=== PATIENT | female | born 1980 | race Caucasian/White ===

== ENCOUNTER 2017-07-22 19:43 | Inpatient (IN) | END 2017-07-23 15:30 | disposition left against medical advice (07) | DRG 202 ==

== ENCOUNTER 2017-08-12 10:57 | Emergency (ER) | END 2017-08-12 16:45 | disposition home or self-care (01) ==

== ENCOUNTER 2017-08-14 00:21 | Emergency (ER) | END 2017-08-14 03:35 | disposition home or self-care (01) ==

== ENCOUNTER 2017-08-17 12:45 | Emergency (ER) | END 2017-08-17 14:55 | disposition home or self-care (01) ==

== ENCOUNTER 2018-09-13 05:33 | Emergency (ER) | payer MEDICAID ==
[~2018-09-13] VITALS: Ht 172.7 cm; Wt 63.9 kg
[~2018-09-13 05:33] MED LIST: ACET-2158 PO; ACET325T33 PO; ALBU18HF IH; ALBU8.5H8 INH; AMOX500C2 PO; ATRO INH; DICY10CA40 PO; FAMO-96 PO; IBUP100O28 PO; OMEP40CA6 PO; ONDA4TAB8 PO; PRED20TA PO; PROM5SYR2 PO; TRAM50TA2 PO; ZOF8 PO
[2018-09-13 05:35] VITALS: BP 125/66; PULSE 81; RESP 18; Ht 172.7 cm; Wt 63.9 kg
[2018-09-13] MEDS ORDERED: ALBUTEROL 0.083% (NEB) 2.5 MG/3 ML AMP HHN STA (06:16)
[2018-09-13] MEDS ORDERED: DEXAMETHASONE 10 MG/ML 1 ML INJ IM ONE (06:30)
[2018-09-13] MEDS ORDERED: IPRATROPIUM (NEB) 0.5 MG/2.5 ML AMP HHN ONE (06:30)
[2018-09-13] MEDS ORDERED: LEVO750T25 PO (07:27)
[2018-09-13] MEDS ORDERED: ALBU2.5V3 NEB (07:27)
[2018-09-13] MEDS ORDERED: PRED20TA PO (07:27)
[2018-09-13] MEDS ORDERED: CEFTRIAXONE 1 GM INJ IM ONE (07:30)
[2018-09-13] MEDS ORDERED: LIDOCAINE 1% (MPF) 5 ML VIAL INJ ONE (07:30)
--- NOTE | 2018-09-13 10:21 | ERD ---
ER Documentation Chief Complaint Chief Complaint cough x 3 weeks, c/o sob HPI 38-year-old female presenting with a cough for the last 3 weeks. Patient has a history of COPD and is using Ventolin and Advair with no alleviation. She took steroids 3 weeks ago but did not resolve her symptoms. Patient denies any feve rs but has a productive cough. Patient is currently homeless. Denies other medical problems. NKDA. Surgical history denies. Social history smokes 1/2 pack a day. Drug use denies ROS All systems reviewed and are negative except as per history of present illness. Medications Home Meds Active Scripts Albuterol Sulfate* (Albuterol Sulfate* Neb) 0.083%-3 Ml Neb, 2.5 MG NEB Q4 PRN for SHORTNESS OF BREATH, #30 EA Prov:RICCO PINTO PA-C 09/13/18 Prednisone* (Prednisone*) 20 Mg Tab, 40 MG PO DAILY for 4 Days, TAB Prov:RICCO PINTO PA-C 09/13/18 Levofloxacin* (Levaquin*) 750 Mg Tablet, 750 MG PO DAILY for 5 Days, TAB Prov:RICCO PINTO PA-C 09/13/18 Tramadol HCl (Tramadol HCl) 50 Mg Tablet, 50 MG PO Q6 PRN for PAIN, #30 TAB Prov:YOMI CAMP PA-C 08/14/17 Ipratropium Jasper* (Atrovent HFA*) 12.9 Gm Aer.w.adap, 2 PUFF INH Q6 PRN for SHORTNESS OF BREATH, #1 EA Prov:YOMI CAMP PA-C 08/14/17 Albuterol Sulfate* (Proair HFA*) 8.5 Gm Hfa.aer.ad, 2 PUFF INH Q4H PRN for WHEEZING AND SOB, #1 INHALER Prov:YOMI CAMP PA-C 08/14/17 Promethazine HCl/Codeine (Prometh-Codein 6.25-10 mg/5 ml) 5 Ml Syrup, 5 ML PO QHS, #120 ML Prov:NOLAN DILLARD MD 08/12/17 Albuterol Sulfate* (Proair HFA*) 8.5 Gm Hfa.aer.ad, 2 PUFF INH Q4H PRN for WHEEZING AND SOB, #1 INHALER Prov:NOLAN DILLARD MD 08/12/17 Amoxicillin* (Amoxicillin*) 500 Mg Cap, 500 MG PO TID for 10 Days, CAP Prov:NOLAN DILLARD MD 08/12/17 Prednisone* (Prednisone*) 20 Mg Tab, 40 MG PO DAILY for 4 Days, TAB Prov:NOLAN DILLARD MD 08/12/17 Ondansetron Hcl* (Zofran*) 8 Mg Tab, 8 MG PO Q6H PRN for NAUSEA AND OR VOMITING, #30 TAB Prov:WILMA SOLOMON 02/06/14 Tramadol HCl (Tramadol HCl) 50 Mg Tab, 50 MG PO Q6H PRN for PAIN, #30 TAB Prov:WILMA SOLOMON 02/06/14 Tramadol HCl (Tramadol HCl) 50 Mg Tab, 50 MG PO Q8H PRN for PAIN, #30 TAB Prov:ZACHARY ORTEGA MD 01/05/14 Dicyclomine HCl (Dicyclomine HCl) 10 Mg Capsule, 10 MG PO q8h PRN for abdominla pain , #20 CAP Prov:MAYRA CAI MD 12/30/13 Ondansetron Hcl* (Zofran*) 4 Mg Tablet, 4 MG PO Q8 PRN for NAUSEA, #25 TAB Prov:MAYRA CAI MD 12/30/13 Tramadol HCl (Tramadol HCl) 50 Mg Tab, 50 MG PO Q8H PRN for PAIN, #20 TAB Prov:MAYRA CAI MD 12/30/13 Famotidine* (Pepcid*) 20 Mg Tablet, 20 MG PO DAILY PRN for INTESTINAL SPASMS/CRAMPING, #30 TAB Prov:MAYRA CAI MD 12/30/13 Omeprazole* (Omeprazole*) 40 Mg Capsule.dr, 40 MG PO BID, #60 CAP Prov:MAYRA CAI MD 12/30/13 Acetaminophen (TYLENOL 325 MG TAB) 325 Mg Tab, 650 MG PO Q6H PRN for PAIN LEVEL 1-3 OR FEVER, #60 TAB Prov:MAYRA CAI MD 12/30/13 Reported Medications Ibuprofen (Ibuprofen) 100 Mg/5 Ml Oral.susp, PO Q6H PRN for PAIN, ML 07/22/17 Acetaminophen* (Tylenol*) 325 Mg Tablet, PO Q4H PRN for PAIN AND OR ELEVATED TEMP, TAB 07/22/17 Albuterol Sulfate* (Ventolin HFA*) 18 Gm Hfa.aer.ad, 2 PUFF IH Q4H PRN for WHEEZING AND RESP DISTRESS, EA 12/27/13 Allergies Allergies: Coded Allergies: ketorolac (Unverified Allergy, Unknown, ITCHING, AGITATION, 01/04/14) MD MADE AWARE PMhx/Soc Anesthesia Reaction: No Hx Neurological Disorder: No Hx Respiratory Disorders: Yes (Asthma) Hx Cardiac Disorders: No Hx Psychiatric Problems: Yes (Depression, Anxiety) Hx Miscellaneous Medical Probl: No Hx Alcohol Use: Yes (9 beers 01/24) Hx Substance Use: Yes Hx Tobacco Use: Yes (Less than a pack a day) Smoking Status: Current every day smoker FmHx Family History: No diabetes, No coronary disease, No other Physical Exam Vitals Vital Signs Date Temp Pulse Resp B/P (MAP) Pulse Ox O2 O2 Flow FiO2 Time Delivery Rate 09/13/18 85 20 95 21 06:44 09/13/18 98.8 81 18 125/66 93 05:35 (85) Physical Exam GENERAL: The patient is well-appearing, well-nourished, in no acute distress HEENT: Atraumatic. Conjunctivae are pink. Pupils equal, round, and reactive to light. There is no scleral icterus. Tympanic membranes clear bilaterally. Oropharynx clear. NECK: C-spine is soft and supple. There is no meningismus. There is no cervical lymphadenopathy. CHEST: Diffuse wheezing her auscultation with coarse breath sounds heard throughout. HEART: Regular rate and rhythm. No murmurs, clicks, rubs or gallops. Results 24 hrs Current Medications Medications Dose Sig/Win Start Time Status Last (Trade) Ordered Route PRN Stop Time Admin Dose Reason Admin Albuterol 5 mg ONCE STAT 09/13/18 DC 09/13/18 (Proventil HHN 06:16 09/13/18 06:43 0.083% (Neb)) 06:17 Ipratropium 0.5 mg ONCE ONCE 09/13/18 DC 09/13/18 Jasper HHN 06:30 09/13/18 06:43 (Atrovent 06:31 0.02% (Neb)) 10 mg ONCE ONCE 09/13/18 DC 09/13/18 Dexamethasone IM 06:30 09/13/18 06:37 (Decadron) 06:31 Ceftriaxone 1 gm ONCE ONCE 09/13/18 DC 09/13/18 Sodium IM 07:30 09/13/18 07:27 (Rocephin) 07:31 Lidocaine 5 ml ONCE ONCE 09/13/18 DC 09/13/18 (Xylocaine INJ 07:30 09/13/18 07:27 1% (Mpf)) 07:31 Procedures/MDM DIAGNOSTIC IMAGING REPORT Patient: ROQUE BULLARD : 1980 Age: 38 Sex: F MR #: [id number] DOS: 09/13/18 0616 Ordering MD: MINA PINTO PA-C Location: [facility] Room/Bed: PROCEDURE: XR Chest. CLINICAL INDICATION: Dyspnea. TECHNIQUE: Single frontal chest x-ray. COMPARISON: None. FINDINGS: The lungs are remarkable for mild patchy atelectasis in the lung bases bilaterally. However small focal infiltrate in the left lung base may be present as well. The remainder of the lungs are otherwise clear. There is no pneumothorax. The cardiomediastinal silhouette is unremarkable. The osseous structures are unremarkable. IMPRESSION: 1. Possible left basilar pneumonia. 2. Mild bibasilar subsegmental atelectasis. 3. Otherwise, unremarkable chest x-ray. ER course: Rocephin given in ED. albuterol and Atrovent breathing treatment given in ED. Decadron given in ED. MDM: 38-year-old female presenting with pneumonia. Patient received antibiotics in the emergency room. I have low suspicion for respiratory distress or hypoxia. Patient's exam is non-concerning patient is nontoxic-appearing. No accessory muscle use seen on auscultation and no retractions. Patient is discharged with antibiotics. Patient is told to follow-up with primary care and return if symptoms change or worsen. All questions answered at discharge Departure Diagnosis: Primary Impression: Pneumonia Condition: Stable Patient Instructions: Pneumonia (Adult) Referrals: COMM[facility]ITY CLINICS YOU HAVE RECEIVED A MEDICAL SCREENING EXAM AND THE RESULTS INDICATE THAT YOU DO NOT HAVE A CONDITION THAT REQUIRES URGENT TREATMENT IN THE EMERGENCY DEPARTMENT. FURTHER EVALUATION AND TREATMENT OF YOUR CONDITION CAN WAIT UNTIL YOU ARE SEEN IN YOUR DOCTORS OFFICE WITHIN THE NEXT 1-2 DAYS. IT IS YOUR RESPONSIBILITY TO MAKE AN APPOINTMENT FOR FOLOW-UP CARE. IF YOU HAVE A PRIMARY DOCTOR --you should call your primary doctor and schedule an appointment IF YOU DO NOT HAVE A PRIMARY DOCTOR YOU CAN CALL OUR PHYSICIAN REFERRAL HOTLINE AT IF YOU CAN NOT AFFORD TO SEE A PHYSICIAN YOU CAN CHOSE FROM THE FOLLOWING [facility] [address] [facility]. [facility] [address] [facility] [facility] [address] [facility] [address] [facility]. [facility] [address] [facility]. [facility]. [address] Additional Instructions: FOLLOW UP WITH YOUR PRIMARY CARE PHYSICIAN TOMORROW.Return to this facility if you are not improving as expected. RICCO PINTO PA-C Sep 13, 2018 10:21
== END 2018-09-13 07:38 | disposition home or self-care (01) ==
LOC: EEVIPCON 05:33 → FTE 05:33
DX: J18.9 Pneumonia, unspecified organism (principal); J44.9 Chronic obstructive pulmonary disease, unspecified; F17.210 Nicotine dependence, cigarettes, uncomplicated; Z59.0 Homelessness
CPT/HCPCS: 71045; 94664; 96372; J0696; J1100; Z7502; Z7610

== ENCOUNTER 2018-11-22 02:30 | Emergency (ER) | payer MEDICAID ==
[~2018-11-22] VITALS: Ht 172.7 cm; Wt 63.5 kg
[~2018-11-22 02:30] MED LIST changes: +ADV25050 INHALATION; +ALBU18HF INHALATION; +ALBU2.5V3 NEB; +LEVO750T25 PO; +MONT10TA24 PO
[2018-11-22 02:37] VITALS: Ht 172.7 cm; Wt 63.5 kg
[2018-11-22] MEDS ORDERED: ALBUTEROL 0.5% (NEB) 2.5 MG/0.5 ML AMP INH STA (03:03)
[2018-11-22] MEDS ORDERED: METHYLPREDNISOLONE 125 MG INJ IV STA (03:03)
[2018-11-22] MEDS ORDERED: IPRATROPIUM (NEB) 0.5 MG/2.5 ML AMP INH STA (03:03)
--- NOTE | 2018-11-22 04:54 | ERD ---
ER Documentation Chief Complaint Chief Complaint SOB getting worse x 4 days, cough x 1 week HPI Is a 38-year female comes in with complaints of shortness of breath and cough for the past week.. Denies fevers chills nausea vomiting. Cough mildly productive. Denies any other current issues. ROS All systems reviewed and are negative except as per history of present illness. Medications Home Meds Active Scripts Albuterol Sulfate* (Albuterol Sulfate* Neb) 0.083%-3 Ml Neb, 2.5 MG NEB Q4 PRN for SHORTNESS OF BREATH, #30 EA Prov:RICCO PINTO PA-C 09/13/18 Prednisone* (Prednisone*) 20 Mg Tab, 40 MG PO DAILY for 4 Days, TAB Prov:RICCO PINTO PA-C 09/13/18 Levofloxacin* (Levaquin*) 750 Mg Tablet, 750 MG PO DAILY for 5 Days, TAB Prov:RICCO PINTO PA-C 09/13/18 Tramadol HCl (Tramadol HCl) 50 Mg Tablet, 50 MG PO Q6 PRN for PAIN, #30 TAB Prov:YOMI CAMP PA-C 08/14/17 Ipratropium Maple* (Atrovent HFA*) 12.9 Gm Aer.w.adap, 2 PUFF INH Q6 PRN for SHORTNESS OF BREATH, #1 EA Prov:YOMI CAMPC 08/14/17 Albuterol Sulfate* (Proair HFA*) 8.5 Gm Hfa.aer.ad, 2 PUFF INH Q4H PRN for WHEEZING AND SOB, #1 INHALER Prov:YOMI CAMP PA-C 08/14/17 Promethazine HCl/Codeine (Prometh-Codein 6.25-10 mg/5 ml) 5 Ml Syrup, 5 ML PO QHS, #120 ML Prov:NOLAN DILLARD MD 08/12/17 Albuterol Sulfate* (Proair HFA*) 8.5 Gm Hfa.aer.ad, 2 PUFF INH Q4H PRN for WHEEZING AND SOB, #1 INHALER Prov:NOLAN DILLARD MD 5/5/18 Amoxicillin* (Amoxicillin*) 500 Mg Cap, 500 MG PO TID for 10 Days, CAP Prov:NOLAN DILLARD MD 08/12/17 Prednisone* (Prednisone*) 20 Mg Tab, 40 MG PO DAILY for 4 Days, TAB Prov:NOLAN DILLARD MD 08/12/17 Ondansetron Hcl* (Zofran*) 8 Mg Tab, 8 MG PO Q6H PRN for NAUSEA AND OR VOMITING, #30 TAB Prov:WILMA SOLOMON 02/06/14 Tramadol HCl (Tramadol HCl) 50 Mg Tab, 50 MG PO Q6H PRN for PAIN, #30 TAB Prov:WILMA SOLOMON 02/06/14 Tramadol HCl (Tramadol HCl) 50 Mg Tab, 50 MG PO Q8H PRN for PAIN, #30 TAB Prov:ZACHARY ORTEGA MD 01/05/14 Dicyclomine HCl (Dicyclomine HCl) 10 Mg Capsule, 10 MG PO q8h PRN for abdominla pain , #20 CAP Prov:MAYRA CAI MD 12/30/13 Ondansetron Hcl* (Zofran*) 4 Mg Tablet, 4 MG PO Q8 PRN for NAUSEA, #25 TAB Prov:MAYRA CAI MD 12/30/13 Tramadol HCl (Tramadol HCl) 50 Mg Tab, 50 MG PO Q8H PRN for PAIN, #20 TAB Prov:MAYRA CAI MD 12/30/13 Famotidine* (Pepcid*) 20 Mg Tablet, 20 MG PO DAILY PRN for INTESTINAL SPASMS/CRAMPING, #30 TAB Prov:MAYRA CAI MD 12/30/13 Omeprazole* (Omeprazole*) 40 Mg Capsule.dr, 40 MG PO BID, #60 CAP Prov:MAYRA CAI MD 12/30/13 Acetaminophen (TYLENOL 325 MG TAB) 325 Mg Tab, 650 MG PO Q6H PRN for PAIN LEVEL 1-3 OR FEVER, #60 TAB Prov:MAYRA CAI MD 12/30/13 Reported Medications Ibuprofen (Ibuprofen) 100 Mg/5 Ml Oral.susp, PO Q6H PRN for PAIN, ML 07/22/17 Acetaminophen* (Tylenol*) 325 Mg Tablet, PO Q4H PRN for PAIN AND OR ELEVATED TEMP, TAB 07/22/17 Albuterol Sulfate* (Ventolin HFA*) 18 Gm Hfa.aer.ad, 2 PUFF IH Q4H PRN for WHEEZING AND RESP DISTRESS, EA 12/27/13 Allergies Allergies: Coded Allergies: ketorolac (Unverified Allergy, Unknown, ITCHING, AGITATION, 01/04/14) MD MADE AWARE PMhx/Soc Anesthesia Reaction: No Hx Neurological Disorder: No Hx Respiratory Disorders: Yes (Asthma,COPD) Hx Cardiac Disorders: No Hx Psychiatric Problems: Yes (Depression, Anxiety) Hx Miscellaneous Medical Probl: No Hx Alcohol Use: Yes (9 beers 01/24) Hx Substance Use: Yes (last used 17 year ago per pt verbatim) Hx Tobacco Use: Yes (Less than a pack a day) Smoking Status: Current every day smoker Physical Exam Vitals Vital Signs Date Temp Pulse Resp B/P (MAP) Pulse Ox O2 O2 Flow FiO2 Time Delivery Rate 11/22/18 Nasal 2.0 03:25 Cannula 11/22/18 91 20 97 Nasal 2.0 03:24 Cannula 11/22/18 97 2.0 03:24 11/22/18 Nasal 1 03:10 Cannula 11/22/18 97.9 97 20 124/58 91 02:37 (80) Physical Exam Const: No acute distress Head: Atraumatic Eyes: Normal Conjunctiva ENT: Normal External Ears, Nose and Mouth. Neck: Full range of motion. No meningismus. Resp: Clear to auscultation bilaterally Cardio: Regular rate and rhythm, no murmurs Abd: Soft, non tender, non distended. Normal bowel sounds Skin: No petechiae or rashes Back: No midline or flank tenderness Ext: No cyanosis, or edema Neur: Awake and alert Psych: Normal Mood and Affect Result Diagram: 11/22/18 0300 11/22/18 0300 Results 24 hrs Laboratory Tests Test 11/22/18 03:00 11/22/18 03:11 White Blood Count 7.1 10^3/ul Red Blood Count 4.40 10^6/ul Hemoglobin 13.0 g/dl Hematocrit 39.3 % Mean Corpuscular Volume 89.3 fl Mean Corpuscular Hemoglobin 29.5 pg Mean Corpuscular Hemoglobin Concent 33.1 g/dl Red Cell Distribution Width 12.4 % Platelet Count 211 10^3/UL Mean Platelet Volume 9.1 fl Immature Granulocytes % 0.100 % Neutrophils % 55.0 % Lymphocytes % 22.5 % Monocytes % 10.7 % Eosinophils % 10.6 % Basophils % 1.1 % Nucleated Red Blood Cells % 0.0 /100WBC Immature Granulocytes # 0.010 10^3/ul Neutrophils # 3.9 10^3/ul Lymphocytes # 1.6 10^3/ul Monocytes # 0.8 10^3/ul Eosinophils # 0.8 10^3/ul Basophils # 0.1 10^3/ul Nucleated Red Blood Cells # 0.0 10^3/ul Sodium Level 137 mmol/L Potassium Level 3.4 mmol/L Chloride Level 98 mmol/L Carbon Dioxide Level 31 mmol/L Anion Gap 8 Blood Urea Nitrogen 13 mg/dl Creatinine 0.69 mg/dl Est Glomerular Filtrat Rate mL/min > 60 mL/min Glucose Level 85 mg/dl Calcium Level 9.0 mg/dl POC Beta HCG, Qualitative NEGATIVE Current Medications Medications Dose Sig/Win Start Time Status Last (Trade) Ordered Route PRN Stop Time Admin Dose Reason Admin Albuterol 10 mg ONCE STAT 11/22/18 DC 11/22/18 (Proventil INH 03:03 03:24 0.5% (Neb)) 11/22/18 03:04 Ipratropium 1 mg ONCE STAT 11/22/18 DC 11/22/18 Maple INH 03:03 03:24 (Atrovent 11/22/18 03:05 0.02% (Neb)) 125 mg ONCE STAT 11/22/18 DC 11/22/18 Methylprednis IV 03:03 03:08 olone Sodium 11/22/18 03:05 Succinate (Solu-Medrol) Procedures/MDM Chest X-ray 1V Interpreted by me: Soft Tissue: No acute abnormalities Bones: No acute abnormalities Mediastinum/Cardiac Silhouette/Lungs: [No acute abnormalities] Patient's respiratory status has stabilized while in the department and is appropriate for outpatient work up. Exam and work up not consistent w/ impending respiratory failure or cardiovascular collapse. Departure Diagnosis: Primary Impression: Asthma Asthma severity: unspecified severity Asthma persistence: unspecified Asthma complication type: unspecified Qualified Codes: J45.909 - Unspecified asthma, uncomplicated Condition: Stable ZACHARY MCCONNELL Nov 22, 2018 04:54
[2018-11-22 05:41] VITALS: BP 93/59; PULSE 81; RESP 20
== END 2018-11-22 05:55 | disposition home or self-care (01) ==
LOC: E/R 02:30
DX: J45.901 Unspecified asthma with (acute) exacerbation (principal); F17.210 Nicotine dependence, cigarettes, uncomplicated; R40.2142 Coma scale, eyes open, spontaneous, at arrival to emergency department; R40.2362 Coma scale, best motor response, obeys commands, at arrival to emergency department; R40.2252 Coma scale, best verbal response, oriented, at arrival to emergency department
CPT/HCPCS: 71045; 80048; 81025; 85025; 94644; 96374; J2930; Z7502; Z7610